=== PATIENT | female | born 1990 | race Caucasian/White ===

== ENCOUNTER 2017-05-24 08:00 | Inpatient (IN) ==
[2017-05-24] MEDS ORDERED: Famotidine 20 MG/2 ML VIAL IVP PRN (08:53)
[2017-05-24] MEDS ORDERED: Naloxone 0.4 MG/ML INJ IVP PRN (08:53)
[2017-05-24] MEDS ORDERED: Ringers Solution, Lactated 1,000 ML IVC SCH (09:00)
[2017-05-24] MEDS ORDERED: Ringers Solution, Lactated 1,000 ML ONE (09:09)
[2017-05-24 09:22] LABS: Basophils # 0.1 K/mcL (0.0-0.2); Basophils % 0.7 %; Eosinophils # 0.2 K/mcL (0.0-0.6); Eosinophils % 1.5 %; Hematocrit 40.1 % (35.3-44.9); Hemoglobin 12.6 g/dL (11.5-15.4); Lymphocytes # 2.9 K/mcL (0.6-4.6); Lymphocytes % 21.1 %; Mean Corpuscular HGB Conc 31.4 g/dL (31.6-35.5); Mean Corpuscular Hemoglobin 24.7 pg (28.0-33.3); Mean Corpuscular Volume 78.6 fL (83.0-100.0); Mean Platelet Volume 10.9 fL (9.4-12.4); Monocytes # 0.8 K/mcL (0.0-1.3); Neutrophils # 9.6 K/mcL (1.6-8.9); Platelet Count 283 K/mcL (140-400); Red Cell Distribution Width 16.6 % (11.5-14.5); Segmented Neutrophils % 69.7 %
[2017-05-24 10:06] LABS: Amphetamine Screen,Urine Negative ng/mL (Cutoff=1000); Barbiturate Screen,Urine Negative ng/mL (Cutoff=200); Benzodiazepines Screen,Urine Negative ng/mL (Cutoff=200); Cannabinoid Screen,Urine Negative ng/mL (Cutoff = 50); Cocaine Screen,Urine Negative ng/mL (Cutoff= 300); Opiate Screen,Urine Negative ng/mL (Cutoff=300); Phencyclidine Screen,Urine Negative ng/mL (Cutoff=25)
--- NOTE | 2017-05-24 10:23 | Anesthesia Evaluation PreOp ---
Date of Encounter: 05/24/17 Time of Encounter: 10:20 - Past History Planned Operation: neno Cardiac History: Denies any Significant Hx Pulmonary History: Smoker (quit 3 months ago. 1/2 pack per day) ENTRY WRITER History: Denies Any Significant HX Other Medical History: Renal, GERD Anesthesia History: No Prior Anesthetic Complications, Past Anesthesia : Yes (, 39 weeks) Alcohol Use: none Drug use: none Medications and Allergies 3 Allergy/AdvReac Type Severity Reaction Status Date / Time Penicillins Allergy Hives Verified 05/24/17 09:22 - Meds/Allergy Pre-op Review Medications Reviewed: Yes Allergies Reviewed: Yes Beta Blockers on Current Med List: No Anesthesia Results - Labs 05/24/17 09:16 Anesthesia Exam O2 Sat Height 1.63 m Height 1.63 m Weight 111 kg Weight 111.4 kg bp 143/84 hr 87 spo2 98 Weight: 111 - HEENT Pupil (Motor): Pupils equal Mallampati: II Teeth: Normal Oral Opening: Greater than 3 - ENTRY WRITER LOC: Oriented ENTRY WRITER Motor: Normal RUE, Normal LUE, Normal RLE, Normal LLE, Normal Face ENTRY WRITER Sensory: Normal: RUE, LUE, RLE, LLE, Face - Cardiac Rhythm: Regular Murmur: None JVD: No Carotid Bruit: No - Pulmonary Breath Sounds: bilateral Clear Respiratory Effort: Symmetrical Anesthesia Assess/Plan ASA Score: 2 Modified Suhail Scale for Level of Consciousness: Cooperative, oriented, and tranquil Anesthetic Plan: Regional Monitoring Plan: Standard Monitors Recovery Plan: PACU
[2017-05-24] MEDS ORDERED: *HR* FentaNYL (PF) 100 MCG/2 ML VIAL ONE (10:34)
[2017-05-24] MEDS ORDERED: *HR* Ropivacaine/PF 0.2% 10 ML AMPUL ONE ×2 (10:35→18:40)
[2017-05-24] MEDS ORDERED: Epidural Premix (fent/bupiv) 110 ML EP ONE ×2 (10:35→17:43)
--- NOTE | 2017-05-24 11:10 | Anesthesia Procedures ---
Date of Encounter: 05/24/17 Time of Encounter: 11:08 Procedures: Anesthesia - Epidural/Spinal Patient ID/Chart reviewed: Yes Patient examined: Yes OB Eval: Gestational age: 39 OB Eval: : 4 OB Eval: Hx Para: 1 OB Eval: Dilated at (cm): 4 OB Eval: Contractions: Non-stressed pattern Consent Obtained: Yes Supplemental Oxygen: None/Room Air Patient position: upright Local Anesthetic: Lidocaine 1% Amount of Local Anesthetic used: 3 Touhy Needle Gauge: 18 Touhy Needle Depth (cm): 7 Catheter Depth at Skin (cm): 12 Test Dose (1.5% Lido + Epi): Volume given (mls): 3 Test Dose Result: Negative Loading Dose: 0.25% Marcaine (mls): 5 Loading Dose: Fentanyl (mcg): 100 Loading Dose: Other: 3ml nss Loading Dose Administered: Thru Touhy Needle Infusion Med: 0.125% Bupivacaine w/ 2 mcg/ml Fentanyl Infusion Rate (mls/hr): [address]: Tegaderm Interspace Used: L3-L4 Loss of Resistance (AGNIESZKA): Yes Blood: No CSF: No Paresthesia: No Procedure: strict asepsis, one attempt, good agnieszka, fhr unchanged
[2017-05-24] MEDS ORDERED: Ondansetron 4 MG/2 ML VIAL IVP ONE (11:35)
[2017-05-24] MEDS ORDERED: Ondansetron 4 MG/2 ML VIAL ONE (11:39)
[2017-05-24] MEDS ORDERED: miSOPROStol 25 MCG TABLET PO SCH (12:00)
[2017-05-24] MEDS ORDERED: Famotidine 20 MG/2 ML VIAL IVP ONE (13:19)
[2017-05-24] MEDS ORDERED: Oxytocin 20 units/ LR 1000 mL 20 UNIT/1,000 ML BAG IVC ONE ×2 (20:26→23:31)
--- NOTE | 2017-05-24 20:37 | OB/GYN Procedure Note ---
Delivery - Delivery Date: 05/24/17 Provider: Naveen Steen Intrapartum events: none Delivery induction: AROM, misoprostol Delivery augmentation: rupture of membranes Delivery monitor: internal FHT, internal uterine Anesthesia: epidural Estimated Blood Loss: 100 - Infant (s) A Infant Delivery Date: 05/24/17 Infant Delivery Time: 20:22 Presentation: vertex Position: LUISANA Route of delivery: Gender: Male Viability: Viable Pounds: 8 Ounces: 1 at 1 minute: 8 at 5 mins: 9 Shoulder Dystocia: not encountered Specimens collected: cord blood Cord: 3 umbilical vessels, other (Cord around body) - Repair Episiotomy: none Laceration Description: None - Complications Delivery complications: none - Disposition Mom disposition: stable in LDR disposition: stable in LDR - Comments Comments: Patient status post normal spontaneous vaginal delivery of liveborn male over intact perineum. There was a cord around the body with delivery of the cord. Sponges delivered normal symmetry vessel cord. There was no laceration. Estimated blood loss 100 mL mother and recovered in labor and delivery room.
--- NOTE | 2017-05-24 20:41 | OB/GYN History & Physical ---
Date of Encounter: 05/24/17 Time of Encounter: 20:39 Assessment and Plan (1) 39 weeks gestation of Current visit: Yes Status: Acute I will admit patient for Cytotec induction. (2) Polyhydramnios affecting in third trimester Current visit: Yes Status: Acute History of Present Illness Chief complaint: Induction of labor HPI: Ms. Buchanan is a 26 year old female para 1 female 39 weeks gestation presents for induction of labor secondary to polyhydramnios with an RHINA of 30. She had normal glucose testing. She has had no other competitions. She reports good movement and denies bleeding or leakage fluid. On arrival today regular arrhythmia was noted. Past Med Surg Social Fam HX - Past Medical History Medical history: no medical history, non-contributory Psychiatric history: depression - Past Surgical History Surgical History: other - Social History Smoking Status: Former smoker Smokeless Tobacco Status: No Alcohol use: none Drug use: none - Family History Mother Hx Family Autoimmune Disorders: Yes (Lupus) Obstetrical History - Pregnancies : 4 Medications and Allergies 3 Allergy/AdvReac Type Severity Reaction Status Date / Time Penicillins Allergy Hives Verified 05/24/17 09:22 Exam - Constitutional Constitutional: well developed - HEENT HEENT: EOMI, PERRL, Mucus Membranes Moist - Neck Neck exam: full ROM - Lungs Respiratory exam: CTAB - Cardiovascular Cardiovascular exam: RRR - Abdomen Abdomen: Present: gravid - Extremities Extremities exam: full ROM Deep Tendon Reflex Grade: 2+ Normal - Cervix Dilation: 2 Effacement: 80 Station: -2 Results Result Diagrams: 05/24/17 09:16 Abnormal lab results WBC 13.7 K/mcL (4.3-11.1) H 05/24/17 09:16 RBC 5.10 M/mcL (3.82-4.97) H 05/24/17 09:16 MCV 78.6 fL (83.0-100.0) L 05/24/17 09:16 MCH 24.7 pg (28.0-33.3) L 05/24/17 09:16 MCHC 31.4 g/dL (31.6-35.5) L 05/24/17 09:16 RDW 16.6 % (11.5-14.5) H 05/24/17 09:16 Neutrophils # 9.6 K/mcL (1.6-8.9) H 05/24/17 09:16 All other labs normal. - VTE Reasons for not Prescribing Prophylaxis: Treatment not Indicated - Low risk for VTE
[2017-05-24] MEDS ORDERED: Measles/Mumps/Rubella Vacc 0.5 ML VIAL SQ PRN (23:31)
[2017-05-24] MEDS ORDERED: Acetaminophen 325 MG TABLET PO PRN (23:31)
[2017-05-24] MEDS ORDERED: Rho Immune Globulin 1,500 UNIT SYRINGE IM PRN (23:31)
[2017-05-24] MEDS ORDERED: Oxytocin 20 units/ LR 1000 mL 20 UNIT/1,000 ML BAG IVC SCH (23:31)
[2017-05-25] MEDS ORDERED: Famotidine 20 MG TABLET PO ONE (01:18)
[2017-05-25] MEDS: Ibuprofen 600 MG TABLET PO PRN ×2 (02:00→08:45)
[2017-05-25 05:23] LABS: Basophils # 0.1 K/mcL (0.0-0.2); Basophils % 0.4 %; Eosinophils # 0.1 K/mcL (0.0-0.6); Eosinophils % 0.5 %; Hematocrit 33.7 % (35.3-44.9); Hemoglobin 10.9 g/dL (11.5-15.4); Immature Granulocytes % 0.8 % (0-4); Lymphocytes % 16.1 %; Mean Corpuscular HGB Conc 32.3 g/dL (31.6-35.5); Mean Corpuscular Hemoglobin 25.6 pg (28.0-33.3); Mean Corpuscular Volume 79.3 fL (83.0-100.0); Mean Platelet Volume 10.5 fL (9.4-12.4); Monocytes # 1.2 K/mcL (0.0-1.3); Monocytes % 6.3 %; Neutrophils # 14.1 K/mcL (1.6-8.9); Platelet Count 249 K/mcL (140-400); Red Blood Count 4.25 M/mcL (3.82-4.97); Red Cell Distribution Width 16.6 % (11.5-14.5); Segmented Neutrophils % 75.9 %
--- NOTE | 2017-05-25 08:23 | Discharge Summary ---
Date of Encounter: 05/25/17 Time of Encounter: 08:21 - Discharge Diagnosis (1) Vaginal delivery Priority: Primary Status: Acute Comments: Pt meeting all milestones. pain well managed on po pain medication. , desires discharge. - Discharge Medications Prescriptions: Ibuprofen [Motrin] 600 mg PO Q6HR PRN #60 tab PRN Reason: Cramping Docusate [Colace] 100 mg PO BID #60 Home Medications: Acetaminophen [Tylenol] 650 mg PO Q6HR PRN tab 05/25/17 [Rx] Docusate [Colace] 100 mg PO BID #60 05/25/17 [Rx] Ibuprofen [Motrin] 600 mg PO Q6HR PRN #60 tab 05/25/17 [Rx] Vit/FA 1 each PO DAILY tab 05/25/17 [Rx] Allergies/Adverse Reactions: 3 Allergy/AdvReac Type Severity Reaction Status Date / Time Penicillins Allergy Hives Verified 05/24/17 09:22 Data Procedures and tests throughout hospitalization: Laboratory Tests 05/24/17 05/24/17 05/25/17 09:16 09:50 05:12 WBC 13.7 H 18.5 H RBC 5.10 H 4.25 Hgb 12.6 10.9 L D Hct 40.1 33.7 L MCV 78.6 L 79.3 L MCH 24.7 L 25.6 L MCHC 31.4 L 32.3 RDW 16.6 H 16.6 H Plt Count 283 249 MPV 10.9 10.5 Immature Gran % 1.0 0.8 Seg Neutrophils % 69.7 75.9 Lymphocytes % 21.1 16.1 Monocytes % 6.0 6.3 Eosinophils % 1.5 0.5 Basophils % 0.7 0.4 Neutrophils # 9.6 H 14.1 H Lymphocytes # 2.9 3.0 Monocytes # 0.8 1.2 Eosinophils # 0.2 0.1 Basophils # 0.1 0.1 Urine Opiates Screen Negative Ur Barbiturates Screen Negative Ur Phencyclidine Scrn Negative Ur Amphetamines Screen Negative U Benzodiazepines Scrn Negative Urine Cocaine Screen Negative U Marijuana (THC) Screen Negative Labs on day of discharge: Labs from last 24 hours 05/25/17 05/24/17 05/24/17 05:12 09:50 09:16 WBC 18.5 H 13.7 H RBC 4.25 5.10 H Hgb 10.9 L D 12.6 Hct 33.7 L 40.1 MCV 79.3 L 78.6 L MCH 25.6 L 24.7 L MCHC 32.3 31.4 L RDW 16.6 H 16.6 H Plt Count 249 283 MPV 10.5 10.9 Immature Gran % 0.8 1.0 Seg Neutrophils % 75.9 69.7 Lymphocytes % 16.1 21.1 Monocytes % 6.3 6.0 Eosinophils % 0.5 1.5 Basophils % 0.4 0.7 Neutrophils # 14.1 H 9.6 H Lymphocytes # 3.0 2.9 Monocytes # 1.2 0.8 Eosinophils # 0.1 0.2 Basophils # 0.1 0.1 Urine Opiates Screen Negative Ur Barbiturates Screen Negative Ur Phencyclidine Scrn Negative Ur Amphetamines Screen Negative U Benzodiazepines Scrn Negative Urine Cocaine Screen Negative U Marijuana (THC) Screen Negative Date of admission: 05/24/17 08:08 Primary care physician: Nilay Vasquez, Consults: 05/24/17 23:31 Consult to Supervisor Production [CONS] Routine Comment: Vaginal delivery, consult needed Discharging clinician: Rowan Brooks Anticipated date of discharge: 05/25/17 - Patient Status Disposition: Home, Self-Care Condition: Good Functional capacity at discharge: independent ambulation - Discharge Instructions Follow Up With: Nilay Vasquez MD [Primary Care Provider] - Naveen Steen MD [Partnered Physician] - - Diet and Activity Activity: resume usual activities as tolerated Diet: regular diet Hospital Course Reason for admission: induction of labor, IUP at term Delivery: Episiotomy: none Laceration: none Other procedures: none complications: none Discharge diagnosis: IUP at term delivered [place] baby: male Hospital course: Delivery - Delivery Date: 05/24/17 Provider: Naveen Steen Intrapartum events: none Delivery induction: AROM, misoprostol Delivery augmentation: rupture of membranes Delivery monitor: internal FHT, internal uterine Anesthesia: epidural Estimated Blood Loss: 100 - (s) Infant A Delivery Date: 05/24/17 Infant Delivery Time: 20:22 Presentation: vertex Position: LUISANA Route of delivery: Gender: Male Viability: Viable Pounds: 8 Ounces: 1 at 1 minute: 8 at 5 mins: 9 Shoulder Dystocia: not encountered Specimens collected: cord blood Cord: 3 umbilical vessels, other (Cord around body) - Repair Episiotomy: none Laceration Description: None - Complications Delivery complications: none - Disposition Mom disposition: stable in PP and appropriate for discharge. Time Attestation: Total time spent providing and/or coordinating discharge services: Time Spent: Less than 30 minutes Exam - Constitutional Vitals: Temp Pulse Resp BP Pulse Ox 98.1 F 90 16 132/86 96 05/25/17 08:00 05/25/17 08:00 05/25/17 08:00 05/25/17 08:00 05/25/17 08:00 General appearance IM: A&O X 3 - Respiratory Respiratory exam: Present: CTAB - Cardiovascular Cardiovascular exam IM: Present: RRR - GI/Abdominal GI/Abdominal exam IM: normal bowel sounds, soft - Uterine Tone: Firm Uterus Position: At Umbilicus - Extremities Exam Extremities exam IM: Present: normal capillary refill, normal inspection - Neurological Exam Neurological exam: normal gait, oriented X3 - Psychiatric Additional comments: Reports good mood.
[2017-05-25] MEDS ORDERED: Prenatal Vit/FA 1 EACH TABLET PO SCH (09:00)
[2017-05-25 16:23] VITALS: BP 148/103
== END 2017-05-25 22:15 | disposition home or self-care (01) | DRG 560 ==
LOC: 1NENULAB 08:08 → 1NENUOBS 23:07
PROVIDERS: ADMIT Obstetrics & Gynecology; ATTEND Obstetrics & Gynecology